=== PATIENT | male | born 1950 | race Caucasian/White ===

== ENCOUNTER → 2017-11-25 | Outpatient (CLI) | payer OTHER, MEDICARE | LOC: FIMAGING 09:00 | PROVIDERS: ATTEND Family Medicine Geriatric Medicine | DX: M85.80 Other specified disorders of bone density and structure, unspecified site (principal) ==

== ENCOUNTER → 2018-01-26 | Outpatient (CLI) | payer OTHER, MEDICARE | LOC: FCPNEURO 20:00 | PROVIDERS: ATTEND Student in an Organized Health Care Education/Training Program | DX: G47.33 Obstructive sleep apnea (adult) (pediatric) (principal) ==

== ENCOUNTER 2019-01-02 07:40 | Day surgery (SDC) | payer OTHER, MEDICARE | END 2019-01-02 13:55 | disposition home or self-care (01) | LOC: FSGY 10:54 ==

== ENCOUNTER 2019-04-09 12:46 | Day surgery (SDC) | payer OTHER, MEDICARE | END 2019-04-09 14:32 | disposition home or self-care (01) | LOC: FSGY 12:46 ==